=== PATIENT | female | born 1990 | race Two or more races ===

== ENCOUNTER 2020-03-05 13:11 | Outpatient (CLI) | payer MEDICAID ==
[~2020-03-05] VITALS: Ht 160 cm; Wt 78.9 kg
[2020-03-05 13:44] VITALS: BP 121/76
== END 2020-03-05 15:11 | disposition home or self-care (01) ==
LOC: PAN 13:11
DX: K21.9 Gastro-esophageal reflux disease without esophagitis (principal)
CPT/HCPCS: G0463

== ENCOUNTER 2020-03-18 10:58 | Outpatient (CLI) | payer MEDICAID ==
[~2020-03-18 10:58] MED LIST: ALBUTEROL SULF8.5 G1 INH; CETIRIZINE HCL10 MG PO; MELATONIN1 MG PO; OMEPRAZOLE20 M2 ORAL
[2020-03-18 11:24] VITALS: BP 124/77
--- NOTE | 2020-03-18 12:07 | General Progress Note ---
Subjective ROS Limited/Unobtainable: Yes Allergies: Coded Allergies: APPLE (Verified Allergy, Unknown, 03/11/20) George (Verified Allergy, Unknown, 03/11/20) MILK (Verified Allergy, Unknown, 03/11/20) PEACH (Verified Allergy, Unknown, 03/11/20) Plums (Verified Allergy, Unknown, 03/11/20) SOY (Verified Allergy, Unknown, 03/11/20) Wheat (Verified Allergy, Unknown, 03/11/20) Objective Last 24 Hour Vital Signs Date Time Temp Pulse Resp B/P (MAP) Pulse Ox O2 Delivery O2 Flow Rate FiO2 03/18/20 11:24 97.3 16 16 124/77 92 General Appearance: alert EENT: normal ENT inspection Neck: supple Cardiovascular: normal rate Respiratory/Chest: lungs clear Abdomen: normal bowel sounds, non tender, soft Extremities: non-tender Assessment/Plan Assessment/Plan: GERD Asthma fatty liver add carafate pending EGD Edgardo Jarvis MD Mar 18, 2020 12:06
== END 2020-03-18 12:58 | disposition home or self-care (01) ==
LOC: PAN 10:58
DX: K21.9 Gastro-esophageal reflux disease without esophagitis (principal); J45.909 Unspecified asthma, uncomplicated; K76.0 Fatty (change of) liver, not elsewhere classified; Z91.011 Allergy to milk products; Z91.018 Allergy to other foods
CPT/HCPCS: 99212